=== PATIENT | male | born 1990 | race Caucasian/White ===

== ENCOUNTER 2017-12-15 19:29 | Emergency (ER) | payer SELFPAY ==
[2017-12-15 19:33] VITALS: BP 131/73; BMI 30.2
[2017-12-15] MEDS ORDERED: ZOFRAN INJ 4 MG VIAL ONE (21:01)
[2017-12-15] MEDS ORDERED: NS 1000 ML 1,000 ML ONE (21:01)
--- NOTE | 2017-12-15 21:03 | DR.GENAD ---
HPI - PCP Primary Care Physician: NFD - Complaint/Symptoms Chief Complaint:: "FEVER AND BEEN SICK FOR THE LAST 4 DAYS." - Nurses notes reviewed Nurses Notes Review: Yes - Source History Provided: Patient - Mode of Arrival Mode of Arrival: Ambulatory - Timing Onset of Chief Complaint: 12/11/17 PMH - PMH Past Medical History: Yes Past Medical History: Asthma Past Surgical History: No - Family History History of Family Medical Conditions: No - Social History Does patient currently use any type of tobacco product: No Have you used tobacco products in the last 12 months: No Type of Tobacco Use: None Alcohol Use: Rarely Do you use any recreational Drugs:: No Lives With: Family Lives Where: Home - infectious screening Have you traveled outside the country in the last 6 months?: No Isolation: Standard PE - Vital Signs Vitals: Temperature 99.0 F Pulse Rate 73 Respiratory Rate 16 Blood Pressure 131/73 O2 Sat by Pulse Oximetry 96 ROR - Labs Reviewed Result Diagrams: 12/15/17 21:17 12/15/17 21:17 Laboratory: WBC 8.8 X10^3/uL (3.6-10.0) 12/15/17 21:17 RBC 5.60 X10^6/uL (4.7-6.0) 12/15/17 21:17 Hgb 15.2 g/dL (13.5-18.0) 12/15/17 21:17 Hct 45.1 % (42.0-54.0) 12/15/17 21:17 MCV 80.6 fL (80.0-100.0) 12/15/17 21:17 MCH 27.1 pg (27.0-34.0) 12/15/17 21:17 MCHC 33.6 g/dL (33.0-35.0) 12/15/17 21:17 RDW 14.1 % (11.6-16.5) 12/15/17 21:17 Plt Count 199 X10^3/uL (150.0-450.0) 12/15/17 21:17 MPV 9.0 fL (7.4-11.0) 12/15/17 21:17 Neut % 87.2 % (42.0-75.0) H 12/15/17 21:17 Lymph % 5.4 % (21.0-51.0) L 12/15/17 21:17 [place] % 6.2 % (0.0-13.0) 12/15/17 21:17 Eos % 1.0 % (0.9-2.9) 12/15/17 21:17 Baso % 0.2 % (0.2-1.0) 12/15/17 21:17 Neut # 7.7 x10^3/uL (2.2-4.8) H 12/15/17 21:17 Lymph # 0.5 X10^3/uL (1.3-2.9) L 12/15/17 21:17 [place] # 0.5 x10^3/uL (0.3-0.8) 12/15/17 21:17 Eos # 0.1 x10^3/uL (0.0-0.2) 12/15/17 21:17 Baso # 0.0 X10^3/uL (0.0-0.1) 12/15/17 21:17 Absolute Nucleated RBC 0.0 /100WBC 12/15/17 21:17 Sodium 138 mmol/L (136-145) 12/15/17 21:17 Corrected Sodium TNP 12/15/17 21:17 Potassium 3.8 mmol/L (3.5-5.1) 12/15/17 21:17 Chloride 103 mmol/L (98-107) 12/15/17 21:17 Carbon Dioxide 29.7 mmol/L (21-32) 12/15/17 21:17 BUN 21 mg/dL (7-18) H 12/15/17 21:17 Creatinine 0.92 mg/dL (0.70-1.30) 12/15/17 21:17 Est GFR (MDRD) Af Amer > 60 (>60) 12/15/17 21:17 Est GFR (MDRD) Non-Af > 60 (>60) 12/15/17 21:17 Glucose 100 mg/dL (65-99) H 12/15/17 21:17 Calcium 8.6 mg/dL (8.5-10.1) 12/15/17 21:17 Corrected Calcium TNP 12/15/17 21:17 Total Bilirubin 0.70 mg/dL (0.2-1.0) 12/15/17 21:17 AST 21 Units/L (15-37) 12/15/17 21:17 ALT 42 Units/L (12-78) 12/15/17 21:17 Alkaline Phosphatase 64 Units/L (46-116) 12/15/17 21:17 Total Protein 7.9 g/dL (6.4-8.2) 12/15/17 21:17 Albumin 3.9 g/dL (3.4-5.0) 12/15/17 21:17 Globulin 4.0 g/dL (2.5-4.5) 12/15/17 21:17 Albumin/Globulin Ratio 1.0 Ratio (1.1-2.1) L 12/15/17 21:17 Amylase 31 Units/L (25-115) 12/15/17 21:17 Lipase 75 Units/L (73-393) 12/15/17 21:17 Influenza Type A (PCR) Negative (NEGATIVE) 12/15/17 20:17 Influenza Type B (PCR) Negative (NEGATIVE) 12/15/17 20:17 Streptococcus Screen Positive (NEGATIVE) A 12/15/17 20:17 - Discharge Plan Condition: Stable Prescriptions: Amoxicillin [Amoxil 875 mg] 875 mg PO Q12H #20 tab Diphenoxylate/Atropine [Lomotil] 1 tab PO TID PRN #15 tab PRN Reason: Ondansetron HCl [Zofran Tab 4 mg] 4 mg PO Q8H PRN #12 tab PRN Reason: Nausea/Vomiting - Follow ups/Referrals Follow ups/Referrals: NFD,None [Primary Care Provider] - 3 days - Instructions Instructions: Viral Gastroenteritis, Adult, [id number], Strep Throat, Easy-to -Read Additional Instructions: RETURN TO ED IF WORSE.
[2017-12-15] MEDS ORDERED: ZOFRAN INJ 4 MG VIAL IVP ONE (21:08)
[2017-12-15] MEDS ORDERED: NS 1000 ML 1,000 ML IV ONE (21:08)
[2017-12-15 21:27] LABS: BASOPHILS % (AUTO) 0.2 % (0.2-1.0); EOSINOPHILS # (AUTO) 0.1 x10^3/uL (0.0-0.2); HEMATOCRIT 45.1 % (42.0-54.0); HEMOGLOBIN 15.2 g/dL (13.5-18.0); LYMPHOCYTES # (AUTO) 0.5 X10^3/uL (1.3-2.9); LYMPHOCYTES % (AUTO) 5.4 % (21.0-51.0); MEAN CORPUSCULAR HEMOGLOBIN 27.1 pg (27.0-34.0); MEAN CORPUSCULAR HGB CONC 33.6 g/dL (33.0-35.0); MEAN CORPUSCULAR VOLUME 80.6 fL (80.0-100.0); MONOCYTES # (AUTO) 0.5 x10^3/uL (0.3-0.8); MONOCYTES % (AUTO) 6.2 % (0.0-13.0); NEUTROPHILS # (AUTO) 7.7 x10^3/uL (2.2-4.8); NEUTROPHILS % (AUTO) 87.2 % (42.0-75.0); PLATELET COUNT 199 X10^3/uL (150.0-450.0); RED CELL DISTRIBUTION WIDTH 14.1 % (11.6-16.5); WHITE BLOOD COUNT 8.8 X10^3/uL (3.6-10.0)
[2017-12-15 21:38] LABS: ALANINE AMINOTRANSFERASE 42 Units/L (12-78); ALBUMIN 3.9 g/dL (3.4-5.0); ALKALINE PHOSPHATASE 64 Units/L (46-116); AMYLASE 31 Units/L (25-115); ASPARTATE AMINO TRANSFERASE 21 Units/L (15-37); BLOOD UREA NITROGEN 21 mg/dL (7-18); CALCIUM 8.6 mg/dL (8.5-10.1); CARBON DIOXIDE 29.7 mmol/L (21-32); CHLORIDE 103 mmol/L (98-107); CREATININE 0.92 mg/dL (0.70-1.30); LIPASE 75 Units/L (73-393); SODIUM 138 mmol/L (136-145); TOTAL PROTEIN 7.9 g/dL (6.4-8.2); eGFR BLACK RACES > 60 (>60); eGFR NON BLACK RACES > 60 (>60)
[2017-12-15] MEDS ORDERED: LOMOTIL PO ONE (22:10)
[2017-12-15] MEDS ORDERED: AMOXIL CAP 500 MG PO ONE ×2 (22:10→22:17)
[2017-12-15] MEDS ORDERED: LOMOTIL ONE (22:18)
== END 2017-12-15 22:24 | disposition home or self-care (01) ==
LOC: ER 19:41
DX: A08.4 Viral intestinal infection, unspecified (principal); J02.0 Streptococcal pharyngitis
CPT/HCPCS: 36415; 80053; 82150; 83690; 85025; 87502; 87880; 96365; 96367; 96374; 99282; 99283; A4222; J2405